=== PATIENT | female | born 1990 | race Caucasian/White ===

== ENCOUNTER 2020-07-25 16:53 | Emergency (ER) | payer OTHER ==
[~2020-07-25] VITALS: Ht 175.3 cm; Wt 59.0 kg
--- OUTSIDE RECORDS SUMMARY | 2020-07-25 16:56 | XMS ---
PreManage Notification: JAQUELINE GRADY Security Hair Assistant Events No recent Security Events currently on file [facility] There are no care providers on record at this time. Camille has no Care Guidelines for this patient. Estrellita VISIT COUNT (12 MO.) 1 ROSEY Rapp TOTAL 1 NOTE: Visits indicate total known visits. ED/C VISIT TRACKING (12 MO.) 07/25/2020 16:54 ROSEY Lee OR TYPE: Emergency COMPLAINT: - FINGER LACERATION INPATIENT VISIT TRACKING (12 MO.) No inpatient visits to display in this time frame [email or web address]
[2020-07-25] MEDS ORDERED: CONCERTA27 MG PO (17:06)
[2020-07-25] MEDS ORDERED: SUDOGEST60 MG PO (17:06)
[2020-07-25] MEDS ORDERED: LAMOTRIGINE100 MG PO (17:07)
== END 2020-07-25 19:08 | disposition home or self-care (01) ==
LOC: ED 16:53
DX: S61.210A Laceration without foreign body of right index finger without damage to nail, initial encounter (principal); W26.0XXA Contact with knife, initial encounter; J45.909 Unspecified asthma, uncomplicated; F90.9 Attention-deficit hyperactivity disorder, unspecified type; Z88.2 Allergy status to sulfonamides; Z79.899 Other long term (current) drug therapy
CPT/HCPCS: 12001; 99282-25

== ENCOUNTER 2024-09-04 10:21 | Inpatient (IN) | payer OTHER ==
[~2024-09-04] VITALS: Ht 175.3 cm; Wt 83.5 kg
[~2024-09-04 10:21] MED LIST: CONCERTA27 MG PO; LAMOTRIGINE100 MG PO; SUDOGEST60 MG PO
[2024-09-05] MEDS ORDERED: CALCIUM CARBONATE 500 MG CHEW PO PRN
[2024-09-05] MEDS ORDERED: miSOPROStoL 25 MCG TAB PV SCH
[2024-09-05] MEDS ORDERED: MAGNESIUM HYDROXIDE/AL HYDROX 30 ML CUP PO PRN
[2024-09-05] MEDS ORDERED: OXYTOCIN/DEXTROSE 5% 20 UNITS/100 ML BAG IV SCH (00:15)
[2024-09-05] MEDS ORDERED: LACTATED RINGER'S 1,000 ML IV PRN (00:15)
[2024-09-05 00:53] LABS: HEMATOCRIT 31.9 % (35.0-50.0); HEMOGLOBIN 11.3 g/dL (12.0-18.0); MCH 34.1 (27-36); MCHC 35.4 g/dl (30-36); MCV 96.4 fl (81-99); RBC 3.31 M/ul (4.3-5.7); RDW 13.1 (10.5-15.0)
[2024-09-05 01:28] LABS: ABO O; ANTIBODY SCREEN NEGATIVE; RH POSITIVE
[2024-09-05 02:50] LABS: AMPHETAMINES, URINE NEGATIVE (NEGATIVE); BARBITURATES, URINE NEGATIVE (NEGATIVE); BENZODIAZEPINE, URINE NEGATIVE (NEGATIVE); BUPRENORPHINE, URINE NEGATIVE (NEGATIVE); CANNABINOID, URINE NEGATIVE (NEGATIVE); COCAINE, URINE NEGATIVE (NEGATIVE); ECSTASY, URINE NEGATIVE (NEGATIVE); FENTANYL, URINE NEGATIVE (NEGATIVE); METHADONE, URINE NEGATIVE (NEGATIVE); OPIATES, URINE NEGATIVE (NEGATIVE); OXYCODONE, URINE NEGATIVE (NEGATIVE); PHENCYCLIDINE, URINE NEGATIVE (NEGATIVE)
[2024-09-05] MEDS ORDERED: fentaNYL citrate 100 MCG/2 ML VIAL ONE ×2 (07:22→13:42)
[2024-09-05] MEDS ORDERED: ROPIVACAINE 0.2% 200 ML BAG ONE (07:22)
[2024-09-05] MEDS ORDERED: ROPIVACAINE 0.2% 200 ML BAG EPIDURAL SCH (08:00)
[2024-09-05] MEDS ORDERED: LACTATED RINGER'S 500 ML IV PRN (08:00)
[2024-09-05] MEDS ORDERED: ePHEDrine sulfate 5 MG/ML SYRINGE IV PRN (08:00)
[2024-09-05] MEDS ORDERED: LACTATED RINGER'S 2,000 ML IV ONE (08:00)
[2024-09-05] MEDS ORDERED: dexmedeTOMIDine HCl 200 MCG/2 ML VIAL ONE ×2 (08:02→14:13)
[2024-09-05] MEDS ORDERED: AZITHROMYCIN/DEXTROSE 500 MG/250 ML BAG IV SCH (13:30)
[2024-09-05] MEDS ORDERED: CEFAZOLIN SODIUM 2 GM/20 ML SYR IV SCH (13:30)
[2024-09-05] MEDS ORDERED: AZITHROMYCIN/DEXTROSE 500 MG/250 ML BAG ONE (13:35)
[2024-09-05] MEDS ORDERED: CEFAZOLIN SODIUM 2 GM/20 ML SYR ONE (13:35)
[2024-09-05] MEDS ORDERED: ePHEDrine sulfate 50 MG/ML AMP ONE (13:37)
[2024-09-05] MEDS ORDERED: SODIUM CHLORIDE 0.9% 40 ML IV ONE (13:37)
[2024-09-05] MEDS ORDERED: OXYTOCIN 10 UNITS/ML VIAL ONE (13:38)
[2024-09-05] MEDS ORDERED: PHENYLEPHRINE HCL 10 MG/ML VIAL ONE (13:38)
[2024-09-05] MEDS ORDERED: LIDOCAINE 2% W/ EPI 1:200,000 20 ML SDV ONE (13:40)
[2024-09-05] MEDS ORDERED: LIDOCAINE HCL 2% 5 ML SDV ONE ×2 (13:40→13:41)
[2024-09-05] MEDS ORDERED: SODIUM CHLORIDE 0.9% 20 ML IV ONE ×2 (14:12→14:15)
[2024-09-05] MEDS ORDERED: Ropivacaine HCl 0.5% 30 ML VIAL ONE (14:12)
[2024-09-05] MEDS ORDERED: DEXAMETHASONE SOD PHOS 4 MG/ML VIAL ONE (14:13)
[2024-09-05] MEDS ORDERED: PROMETHAZINE HCL 25 MG SUPP PR PRN (14:45)
[2024-09-05] MEDS ORDERED: METOCLOPRAMIDE HCL 10 MG/2 ML SDV IV PRN (14:45)
[2024-09-05] MEDS ORDERED: OXYCODONE HCL 5 MG TAB PO PRN (14:45)
[2024-09-05] MEDS ORDERED: ondansetron HCL 4 MG/2 ML VIAL IV PRN ×3 (14:45→15:15)
[2024-09-05] MEDS ORDERED: LIDOCAINE 2% VISCOUS 6 ML SYR TOP ONE (14:45)
[2024-09-05] MEDS ORDERED: OXYTOCIN/0.9 % SODIUM CHLORIDE 500 ML IV SCH (14:45)
[2024-09-05] MEDS ORDERED: PROCHLORPERAZINE EDISYLATE 10 MG/2 ML VIAL IV PRN (14:45)
[2024-09-05] MEDS ORDERED: bisacodyL 10 MG SUPP PR PRN (14:45)
[2024-09-05] MEDS ORDERED: PROMETHAZINE HCL 25 MG TAB PO PRN (14:45)
[2024-09-05] MEDS ORDERED: LACTATED RINGER'S 1,000 ML IV SCH ×2 (14:51)
--- NOTE | 2024-09-05 15:12 | NUR ---
09/05/24 1512 Sheets,Kimmie 1449 PT ARRIVED TO ROOM 106 WITH FBC RN AT BEDSIDE, FATHER WITH BABY AT BEDSIDE. VSS. IV IN LEFT HAND INFUSING LR WITH 20 PIT, SITE WNL. HOB INCREASED SLIGHTLY. 1305 BABY TO CHEST WITH FBC RN. PT REPORTS 4/10 PAIN BUT TOLERSBLE.
[2024-09-05] MEDS ORDERED: fentaNYL citrate 50 MCG/ML SDV IV PRN (15:15)
[2024-09-05] MEDS ORDERED: IBLOOD GLUCOSE TEST STRIP 1 EA TEST VI PRN (15:15)
[2024-09-05] MEDS ORDERED: KETOROLAC TROMETHAMINE 30 MG/ML VIAL IV PRN (15:15)
[2024-09-05] MEDS ORDERED: NALOXONE HCL 0.4 MG SYR IV PRN ×2 (15:15)
[2024-09-05] MEDS ORDERED: MORPHINE SULFATE 4 MG/ML VIAL IV PRN (15:15)
[2024-09-05] MEDS ORDERED: diphenhydrAMINE HCL 50 MG/ML VIAL IV PRN (15:15)
[2024-09-05] MEDS ORDERED: HYDROmorphone HCL 1 MG/ML SYR IV PRN (15:15)
[2024-09-05 15:38] VITALS: BP 117/59
[2024-09-05] MEDS ORDERED: SIMETHICONE 125 MG TABLET CHEWABLE PO SCH (16:00)
[2024-09-05] MEDS ORDERED: KETOROLAC TROMETHAMINE 30 MG/ML VIAL IV SCH ×2 (17:00→20:00)
[2024-09-05] MEDS ORDERED: ACETAMINOPHEN 500 MG TAB PO SCH (20:00)
[2024-09-05] MEDS ORDERED: SENNOSIDES/DOCUSATE 1 EA TAB PO SCH (21:00)
[2024-09-06 05:39] LABS: HEMATOCRIT 29.8 % (35.0-50.0); HEMOGLOBIN 10.6 g/dL (12.0-18.0); MCH 34.3 (27-36); MCHC 35.6 g/dl (30-36); MCV 96.3 fl (81-99); RBC 3.1 M/ul (4.3-5.7); RDW 13.2 (10.5-15.0)
[2024-09-06] MEDS ORDERED: IBUPROFEN 800 MG TAB PO SCH (20:00)
--- NOTE | 2024-09-08 08:40 | OR ---
[facility] [address], [place] [address] Signed DATE OF OPERATION: 09/05/2024 SURGEON: Becky Singh MD PREOPERATIVE DIAGNOSIS: Failed vacuum, arrest of descent. POSTOPERATIVE DIAGNOSIS: Failed vacuum, arrest of descent, delivered. PROCEDURE: Primary section with low segment transverse uterine incision. ANESTHESIA: Spinal. ESTIMATED BLOOD LOSS: 500 mL. DRAINS: Col[place]a catheter. INDICATIONS AND FINDINGS: The patient is a 34-year-old female, 2, para 0, SAB 1, who was admitted at 41 weeks for induction of labor secondary to postdates. She made good progress in her labor and after reaching complete, began pushing. She pushed with only fair effort; however, was unable to bring the baby down beyond the +2 station. She was consented for a trial of vacuum at that time, however, the baby failed to descend over two contractions and the decision was made to proceed with primary section. She was delivered of a little boy via lower segment transverse uterine incision. The baby was LOT; however, the baby was delivered as a breech secondary to the deep arrest of the head. The Apgars were 2, 7, and 9. The weight was 8 pounds and 11 ounces. Cord gases were 7.17 and 7.24. The uterus, tubes, ovaries, and placenta were normal. DESCRIPTION OF PROCEDURE: The patient was prepped and draped in the supine position. A Pfannenstiel skin incision was made and carried down through the fascia. The incision was extended laterally. The inferior and superior fascial flaps were then created. The muscles were bluntly divided and the peritoneum bluntly entered and extended bluntly. The Vinicius retractor was then placed. The uterine incision was made at the upper aspect of the peritoneal reflection. Electronically Signed By: BECKY SINGH MD 09/08/24 0840 PATIENT NAME: JAQUELINE SCHULTZ OPERATIVE REPORT DATE OF : 86 REPORT #: [id number] PHYSICIAN: BECKY SINGH MD PCP: JOSE MIGUEL PIPER [facility] REPORT IS CONFIDENTIAL AND NOT TO BE RELEASED WITHOUT AUTHORIZATION [facility] [address], [place] [address] Signed The baby was delivered as a breech as the vertex was too low and too difficult to reach successfully. The placenta was expressed and the uterus explored with a lap tape assuring no remaining fragments. The edges of the incision were identified and the uterus was closed in two layers using 0-Monocryl. The first layer was a running locking stitch and the second was a vertical imbricating stitch. There were no extensions of the incision. This layer was irrigated, inspected and good hemostasis was noted. The retractor was removed. The peritoneum identified. The peritoneum was closed with a running suture of 3-0 Vicryl. The muscles were brought together with interrupted sutures of 0-Vicryl. Bleeding points were controlled with cautery. This layer was also irrigated, inspected, and good hemostasis was noted. The fascia was closed from each angle to the midline with a running suture of 0-Vicryl. The subcu space was irrigated and bleeding points controlled with cautery. The deep space was closed with a running suture of 3-0 Vicryl. The skin was closed with shirin. All sponge and needle counts were correct. She tolerated the procedure well and was taken to the recovery room in good condition. Becky Singh MD PJW/MODL /[id number] Copies: ~ Electronically Signed By: BECKY SINGH MD 09/08/24 0840 PATIENT NAME: JAQUELINE SCHULTZ OPERATIVE REPORT DATE OF : 86 REPORT #: [id number] PHYSICIAN: BECKY SINGH MD PCP: JOSE MIGUEL PIPER [facility] REPORT IS CONFIDENTIAL AND NOT TO BE RELEASED WITHOUT AUTHORIZATION
[2024-09-08] MEDS ORDERED: AZITHROMYCIN 500 MG in DEXTROSE 5% 250 ML IV ONE (08:45)
== END 2024-09-08 12:10 | disposition home or self-care (01) | DRG 788 ==
LOC: FBC 09-05 00:04
PROVIDERS: ADMIT Obstetrics & Gynecology; ATTEND Obstetrics & Gynecology
PROC: 10D07Z6 Extraction of Products of Conception, Vacuum, Via Natural or Artificial Opening (ICD-10-PCS; 2024-09-05)
PROC: 3E0P7VZ Introduction of Hormone into Female Reproductive, Via Natural or Artificial Opening (ICD-10-PCS; 2024-09-05)
PROC: 10D00Z1 Extraction of Products of Conception, Low, Open Approach (ICD-10-PCS; principal; 2024-09-05 14:15)
DX: O48.0 Post-term pregnancy (principal); Z37.0 Single live birth; Z3A.41 41 weeks gestation of pregnancy; O62.1 Secondary uterine inertia; O32.1XX0 Maternal care for breech presentation, not applicable or unspecified; O99.52 Diseases of the respiratory system complicating childbirth; J45.909 Unspecified asthma, uncomplicated
CPT/HCPCS: 01961; 36415; 76942; 80307; 82803; 85027; 86850; 86900; 86901; A9270; J0456; J0690; J1100; J1885; J2003; J2371; J2590; J2795; J3010